=== PATIENT | female | born 1980 | race Caucasian/White ===

== ENCOUNTER 2018-04-11 15:20 | Emergency (ER) | payer OTHER ==
[2018-04-11] MEDS ORDERED: ASPIRIN 81 MG CHEWABLE TABLETS PO ONE (15:26)
--- NOTE | 2018-04-11 15:26 | PDOC ---
Rapid Medical Evaluation Time Seen by Provider: 04/11/18 15:25 Medical Evaluation: Allergies Allergy/AdvReac Type Severity Reaction Status Date / Time No Known Allergies Allergy Verified 09/02/16 13:48 04/11/18 15:25 I have performed a brief in-person evaluation of this patient. The patient presents with a chief complaint of: palpitations x2 weeks Pertinent physical exam findings: tremulous. Skin warm and dry. I have ordered the following: cardiac workup The patient will proceed to the ED for further evaluation. Discharge Disposition - Diagnosis Palpitations - Referrals - Patient Instructions - Post Discharge Activity
[2018-04-11 15:33] VITALS: TEMP 99.4; BMI 36.8
[2018-04-11] MEDS ORDERED: ASPIRIN 81 MG CHEWABLE TABLETS ONE (15:40)
[2018-04-11 16:11] LABS: BASO % 0.4 % (0-2.0); EOS % 0.1 % (0-4.5); HEMATOCRIT 37.9 % (32.4-45.2); HEMOGLOBIN 13.4 GM/dL (10.7-15.3); LYMPH % 17.1 % (8-40); MCH 30.3 pg (25.7-33.7); MCHC 35.3 g/dl (32.0-36.0); MEAN CELL VOLUME 85.8 fl (80-96); MEAN PLT VOLUME 9.7 fl (7.5-11.1); MONO % 2.8 % (3.8-10.2); NEUT % 79.6 % (42.8-82.8); PLATELET COUNT 330 K/MM3 (134-434); RBC 4.41 M/mm3 (3.60-5.2); RDW 13.7 % (11.6-15.6); WHITE BLOOD COUNT 7.6 K/mm3 (4.0-10.0)
[2018-04-11 16:34] LABS: INR 1.03 (0.83-1.09); PROTHROMBIN TIME (PATIENT) 12.1 SEC (9.7-13.0)
[2018-04-11 16:35] LABS: ALBUMIN 3.9 g/dl (3.4-5.0); ALK PHOS 113 U/L (45-117); ANION GAP 7 MMOL/L (8-16); BILIRUBIN,TOTAL 0.4 mg/dL (0.2-1); BLOOD UREA NITROGEN 9 mg/dL (7-18); CALCIUM 8.5 mg/dL (8.5-10.1); CHLORIDE 107 mmol/L (98-107); CO2 23 mmol/L (21-32); CREATININE 0.8 mg/dL (0.55-1.3); GLUCOSE,RANDOM 129 mg/dL (74-106); MAGNESIUM 2.2 mg/dL (1.8-2.4); POTASSIUM 3.8 mmol/L (3.5-5.1); SGOT/AST 20 U/L (15-37); SGPT/ALT 21 U/L (13-61); SODIUM 137 mmol/L (136-145)
[2018-04-11] MEDS ORDERED: SODIUM CHLORIDE 0.9% 1000 ML INFUS.BAG IV ONE (16:44)
[2018-04-11 16:47] LABS: HCG,QUALITATIVE URINE Negative
[2018-04-11 16:48] LABS: URINE APPEARANCE CLOUDY; URINE BILIRUBIN NEGATIVE (<2.0 mg/dL); URINE COLOR STRAW; URINE GLUCOSE (UA) NEGATIVE (NEGATIVE); URINE KETONE NEGATIVE (NEGATIVE); URINE LEUK ESTERASE 2+ (NEGATIVE); URINE NITRITE NEGATIVE (NEGATIVE); URINE PROTEIN NEGATIVE (NEGATIVE); URINE UROBILINOGEN NEGATIVE mg/dL (0.2-1.0)
[2018-04-11 17:10] LABS: EPI CELLS FEW /HPF (FEW); URINE BACTERIA RARE /hpf (NONE SEEN)
[2018-04-11 17:12] VITALS: BP 117/70; PULSE 76
[2018-04-11] MEDS ORDERED: ACETAMINOPHEN 1000 MG/100 ML VIAL (NON FORMULARY) IVPB ONE (17:12)
[2018-04-11] MEDS ORDERED: FAMOTIDINE 20 MG/50 ML IVPB 20 MG/50 ML MG IVPB ONE ×2 (17:12→17:19)
[2018-04-11] MEDS ORDERED: ONDANSETRON 4 MG/2 ML VIAL IVPUSH ONE (17:12)
--- NOTE | 2018-04-11 17:12 | PDOC ---
History of Present Illness - General History Source: Patient Exam Limitations: No Limitations - History of Present Illness Initial Comments: 04/11/18 17:17 The patient a 37-year-old female, with no past medical history, who presents to the ED for evaluation of 3 weeks of lightheadedness and palpitations. The patient states that the palpitations began after drinking a cup of coffee today. She reports that she normally drinks 2 cups per week and has never experienced palpitations before. She reports associated LT-sided chest pain that is reproducible with palpation and profuse sweating of the palms and feet. The patient also reports experiencing nausea, diarrhea x4, and left lower quadrant pain today. She reports recent loss of appetite due to the nausea. Last menstrual period was on 04/06; the patient is not on any contraceptives. The patient denies any fevers or chills. Denies any dysuria, frequency, urgency , hesitancy, or hematuria. Allergies: NKA Surgical History: cholecystectomy. Social History: None reported. <Lucia Claros - Last Filed: 04/11/18 17:23> <Cammie Valera - Last Filed: 04/11/18 19:05> - General Chief Complaint: Palpitations Stated Complaint: Palpitations Time Seen by Provider: 04/11/18 15:25 Past History <Lucia Claros - Last Filed: 04/11/18 17:23> - Past Medical History COPD: No - Suicide/Smoking/Psychosocial Hx Smoking History: Never smoked Have you smoked in the past 12 months: No Information on smoking cessation initiated: No Hx Alcohol Use: No Drug/Substance Use Hx: No <Cammie Valera - Last Filed: 04/11/18 19:05> - Past Medical History Allergies/Adverse Reactions: Allergies Allergy/AdvReac Type Severity Reaction Status Date / Time No Known Allergies Allergy Verified 04/11/18 15:33 Home Medications: Ambulatory Orders NK [No Known Home Medication] 04/11/18 Review of Systems - Review of Systems Able to Perform ROS?: Yes Comments:: 04/11/18 17:17 GENERAL/CONSTITUTIONAL: (+)Diaphoretic, loss of appetite. No fever or chills. No weakness. HEAD, EYES, EARS, NOSE AND THROAT: No change in vision. No ear pain or discharge. No sore throat. CARDIOVASCULAR: (+)Chest pain, palpitations, lightheadedness. No shortness of breath. RESPIRATORY: No cough, wheezing, or hemoptysis. GASTROINTESTINAL: (+)Abdominal pain, nausea, diarrhea. No vomiting. GENITOURINARY: No dysuria, frequency, or change in urination. MUSCULOSKELETAL: (+)Back pain. No joint or muscle swelling or pain. No neck pain. SKIN: No rash NEUROLOGIC: No headache, vertigo, loss of consciousness, or change in strength/ sensation. ENDOCRINE: No increased thirst. No abnormal weight change. HEMATOLOGIC/LYMPHATIC: No anemia, easy bleeding, or history of blood clots. ALLERGIC/IMMUNOLOGIC: No hives or skin allergy. <Lucia Claros - Last Filed: 04/11/18 17:23> *Physical Exam - Vital Signs Last Vital Signs Temp Pulse Resp BP Pulse Ox 99.4 F 76 18 117/70 97 04/11/18 15:31 04/11/18 17:11 04/11/18 17:11 04/11/18 17:11 04/11/18 17:11 - Physical Exam Comments: 04/11/18 17:23 GENERAL: Awake, alert, and fully oriented, in no acute distress HEAD: No signs of trauma EYES: PERRLA, EOMI, sclera anicteric, conjunctiva clear ENT: (+)Dry mucous membranes. Auricles normal inspection, hearing grossly normal , nares patent, oropharynx clear without exudates. NECK: Normal ROM, supple, no lymphadenopathy, JVD, or masses LUNGS: Breath sounds equal, clear to auscultation bilaterally. No wheezes, and no crackles HEART: (+)Tachy. Normal S1 and S2, no murmurs, rubs or gallops ABDOMEN: Soft, nontender, normoactive bowel sounds. No guarding, no rebound. No masses EXTREMITIES: Normal range of motion, no edema. No clubbing or cyanosis. No cords, erythema, or tenderness NEUROLOGICAL: Cranial nerves II through XII grossly intact. Normal speech. SKIN: Warm, Dry, normal turgor, no rashes or lesions noted <Lucia Claros - Last Filed: 04/11/18 17:23> - Vital Signs Last Vital Signs Temp Pulse Resp BP Pulse Ox 99.4 F 91 H 18 119/70 99 04/11/18 15:31 04/11/18 16:23 04/11/18 16:23 04/11/18 16:23 04/11/18 16:23 <Cammie Valera - Last Filed: 04/11/18 19:05> Moderate Sedation - Procedure Monitoring Vital Signs: Procedure Monitoring Vital Signs Temperature 99.4 F 04/11/18 15:31 Pulse Rate 76 04/11/18 17:11 Respiratory Rate 18 04/11/18 17:11 Blood Pressure 117/70 04/11/18 17:11 O2 Sat by Pulse Oximetry (%) 97 04/11/18 17:11 <Lucia Claros - Last Filed: 04/11/18 17:23> - Procedure Monitoring Vital Signs: Procedure Monitoring Vital Signs Temperature 99.4 F 04/11/18 15:31 Pulse Rate 91 H 04/11/18 16:23 Respiratory Rate 18 04/11/18 16:23 Blood Pressure 119/70 04/11/18 16:23 O2 Sat by Pulse Oximetry (%) 99 04/11/18 16:23 <Cammie Valera - Last Filed: 04/11/18 19:05> Heart Score/ECG Review - ECG Intrepretation Comment:: 04/11/18 17:10 sinus tach at 101, nl axis, nl interval, no acute st.t wave findings, no r heart strain pattern <Cammie Valera - Last Filed: 04/11/18 19:05> ED Treatment Course - LABORATORY CBC & Chemistry Diagram: 04/11/18 15:48 04/11/18 15:48 - ADDITIONAL ORDERS Additional order review: Laboratory Results 04/11/18 04/11/18 04/11/18 15:55 15:48 15:48 PT with INR 12.10 INR 1.03 Sodium 137 Potassium 3.8 Chloride 107 Carbon Dioxide 23 Anion Gap 7 L BUN 9 Creatinine 0.8 Creat Clearance w eGFR > 60 Random Glucose 129 H Calcium 8.5 Magnesium 2.2 Total Bilirubin 0.4 AST 20 ALT 21 Alkaline Phosphatase 113 Creatine Kinase 178 Creatine Kinase Index 0.5 CK-MB (CK-2) < 1.0 Troponin I < 0.02 Total Protein 8.0 Albumin 3.9 TSH 0.97 Urine Color Straw Urine Appearance Cloudy Urine pH 6.0 Ur Specific [place] 1.003 L Urine Protein Negative Urine Glucose (UA) Negative Urine Ketones Negative Urine Blood 1+ H Urine Nitrite Negative Urine Bilirubin Negative Urine Urobilinogen Negative Ur Leukocyte Esterase 2+ H Urine WBC (Auto) 5 Urine RBC (Auto) 1 Ur Epithelial Cells Few Urine Bacteria Rare Urine HCG, Qual Negative 04/11/18 15:48 RBC 4.41 MCV 85.8 MCHC 35.3 RDW 13.7 MPV 9.7 Neutrophils % 79.6 Lymphocytes % 17.1 Monocytes % 2.8 L Eosinophils % 0.1 Basophils % 0.4 - Medications Given in the ED: ED Medications Discontinued Medications Generic Name Dose Route Start Last Admin Trade Name Davidq PRN Reason Stop Dose Admin Aspirin 162 mg 04/11/18 15:26 04/11/18 15:42 Asa - PO 04/11/18 15:27 162 mg ONCE ONE Administration Sodium Chloride 1,000 ml 04/11/18 16:44 04/11/18 16:47 Normal Saline - IV 04/11/18 16:45 1,000 ml ONCE ONE Administration <Lucia Claros - Last Filed: 04/11/18 17:23> - LABORATORY CBC & Chemistry Diagram: 04/11/18 15:48 04/11/18 15:48 - ADDITIONAL ORDERS Additional order review: Laboratory Results 04/11/18 04/11/18 04/11/18 15:55 15:48 15:48 PT with INR 12.10 INR 1.03 Sodium 137 Potassium 3.8 Chloride 107 Carbon Dioxide 23 Anion Gap 7 L BUN 9 Creatinine 0.8 Creat Clearance w eGFR > 60 Random Glucose 129 H Calcium 8.5 Magnesium 2.2 Total Bilirubin 0.4 AST 20 ALT 21 Alkaline Phosphatase 113 Creatine Kinase 178 Creatine Kinase Index 0.5 CK-MB (CK-2) < 1.0 Troponin I < 0.02 Total Protein 8.0 Albumin 3.9 TSH 0.97 Urine Color Straw Urine Appearance Cloudy Urine pH 6.0 Ur Specific [place] 1.003 L Urine Protein Negative Urine Glucose (UA) Negative Urine Ketones Negative Urine Blood 1+ H Urine Nitrite Negative Urine Bilirubin Negative Urine Urobilinogen Negative Ur Leukocyte Esterase 2+ H Urine HCG, Qual Negative 04/11/18 15:48 RBC 4.41 MCV 85.8 MCHC 35.3 RDW 13.7 MPV 9.7 Neutrophils % 79.6 Lymphocytes % 17.1 Monocytes % 2.8 L Eosinophils % 0.1 Basophils % 0.4 - Medications Given in the ED: ED Medications Discontinued Medications Generic Name Dose Route Start Last Admin Trade Name Sasha PRN Reason Stop Dose Admin Aspirin 162 mg 04/11/18 15:26 04/11/18 15:42 Asa - PO 04/11/18 15:27 162 mg ONCE ONE Administration Sodium Chloride 1,000 ml 04/11/18 16:44 04/11/18 16:47 Normal Saline - IV 04/11/18 16:45 1,000 ml ONCE ONE Administration <Cammie Valera - Last Filed: 04/11/18 19:05> Medical Decision Making - Medical Decision Making 04/11/18 17:11 a/p: 37yo female with palpitations since drinking coffee earlier today -also with 4 episodes of watery stool -no recent travel or abx -+nausea, no vomiting -no blood in stool -has had episodes of palpitations x 3 weeks -no vázquez -today L sided cp, no radiation-states chest feels itchy -will send labs, dimer, tsh -will hydrate with IVF hydraiton -suspect viral syndrome causing diarrhea today -will monitor and reassess 04/11/18 18:11 re-eval: pt feeling much better no nausea no abd pain no longer with palpitations discussed labs, thyroid normal, blood counts normal, discussed glucose and repeat of fasting glucose needed discussed pending dimer discussed follow up with the medicine clinic and with cardiology answered all quesitons no cp at this time discussed caffeine and palpitations and hydration - need to drink more water 04/11/18 19:04 dimer negative pt feeling better stable for dc to home appt made with the clinic for follow up <Cammie Valera - Last Filed: 04/11/18 19:05> *DC/Admit/Observation/Transfer - Attestations Scribe Attestion: 04/11/18 17:26 Documentation prepared by Lucia Claros, acting as medical technologist prn for Cammie Vaelra DO. <Lucia Claros - Last Filed: 04/11/18 17:23> - Discharge Dispostion Decision to Admit order: No - Attestations Physician Attestion: 04/11/18 18:15 I, Dr. Cammie Kurkowski, DO, attest that this document has been prepared under my direction and personally reviewed by me in its entirety. I further attest, that it accurately reflects all work, treatment, procedures and medical decision -making performed by me. <Cammie Valera - Last Filed: 04/11/18 19:05> Diagnosis at time of Disposition: Palpitations - Discharge Dispostion Disposition: HOME Condition at time of disposition: Stable - Referrals Referrals: Sukumar Wagoner MD [Staff Physician] - Nikko Shah MD [Staff Physician] - - Patient Instructions Printed Discharge Instructions: DI for Palpitations Additional Instructions: Please follow up with the PMD. Please also make an appointment to follow up with the receiving team member in the next 2-3 days. Please drink plenty of fluids. Please watch your caffeine intake. Please return to the ED with any further concerns or complaints.
[2018-04-11] MEDS ORDERED: ACETAMINOPHEN INJECTION 100 ML IVPB ONE (17:19)
[2018-04-11] MEDS ORDERED: ONDANSETRON 4 MG/2 ML VIAL ONE (17:19)
--- NOTE | 2018-04-11 18:00 | EKG ---
Test Reason : Blood Pressure : / mmHG Vent. Rate : 101 BPM Atrial Rate : 101 BPM P-R Int : 116 ms QRS Dur : 074 ms QT Int : 348 ms P-R-T Axes : 026 010 028 degrees QTc Int : 451 ms SINUS TACHYCARDIA OTHERWISE NORMAL ECG NO PREVIOUS ECGS AVAILABLE Confirmed by MESFIN WILLIS MD ([id number]) on 04/11/2018 6:00:10 PM Referred By: Confirmed By:MESFIN WILLIS MD
== END 2018-04-11 19:10 | disposition home or self-care (01) ==
LOC: JER 15:20
PROC: 3E033GC Introduction of Other Therapeutic Substance into Peripheral Vein, Percutaneous Approach (ICD-10-PCS; principal; 2018-04-11)
PROC: 3E033NZ Introduction of Analgesics, Hypnotics, Sedatives into Peripheral Vein, Percutaneous Approach (ICD-10-PCS; 2018-04-11)
DX: R00.2 Palpitations (principal)
CPT/HCPCS: 36415; 80053; 81003; 81015; 82550; 82553; 83735; 84443; 84484; 84703; 85025; 85379; 85610; 93005; 93010; 99285-25; J0131; J7030